=== PATIENT | female | born 1940 | race Caucasian/White ===

== ENCOUNTER 2018-10-12 20:47 | Observation (INO) | payer OTHER ==
[2018-10-12] MEDS ORDERED: ASPIRIN 325 MG TAB ONE (21:09)
[2018-10-12 21:10] LABS: Absolute Lymphocytes (CBC) 1.7 K/uL (0.7-4.9); Basophils % 0.4 % (0-1.3); Lymphocytes % 24.9 % (15.3-44.8); MPV 8.2 fL (7.6-11.3); RBC Red Blood Cell Count 4.56 M/uL (3.86-4.86)
[2018-10-12 21:13] LABS: Protime INR 1.04
--- NOTE | 2018-10-12 21:15 | RAD REPORT ---
EXAM DESCRIPTION: Alyce Single View10/12/2018 9:08 pm CLINICAL HISTORY: Chest pain COMPARISON: 2012 FINDINGS: The lungs appear clear of acute infiltrate. The heart is normal size IMPRESSION: No acute abnormalities displayed
[2018-10-12 21:32] LABS: ALT/SGPT 22 U/L (12-78); AST/SGOT 25 U/L (15-37); Albumin 3.8 g/dL (3.4-5.0); Alkaline Phosphatase 83 U/L (45-117); BUN Blood Urea Nitrogen 26 mg/dL (7-18); Bicarbonate 27 mmol/L (21-32); Bilirubin Direct < 0.1 mg/dL (0-0.2); Bilirubin Total 0.2 mg/dL (0.2-1.0); Glucose Level 106 mg/dL (74-106); Magnesium 2.1 mg/dL (1.8-2.4); NT PRO-BNP 97 pg/mL (<450); Potassium 3.5 mmol/L (3.5-5.1); Protein, Total 7.6 g/dL (6.4-8.2); Sodium Level 142 mmol/L (136-145); Troponin (Emerg Dept Use Only) < 0.02 ng/mL (0.0-0.045)
--- NOTE | 2018-10-12 23:26 | ER ---
Nurse's Notes [facility] Name: Marybel Quinn Age: 78 yrs Sex: Female : 1940 Arrival Date: 10/12/2018 Time: 20:50 Bed 6 Private MD: Ashley Wiley C Diagnosis: Chest pain, unspecified Presentation: 10/12 21:01 Presenting complaint: Patient states: Pt reports she started having chest pain about an ea hour ago, states "I was just walking to the kitchen to fix my and I some yogurt and the pain just started" reports pain gets worse with movement, denies pain radiating. Transition of care: patient was not received from another setting of care. Onset of symptoms was October 12, 2018. Risk Assessment: Do you want to hurt yourself or someone else? Patient reports no desire to harm self or others. Initial Sepsis Screen: Does the patient meet any 2 criteria? No. Patient's initial sepsis screen is negative. Does the patient have a suspected source of infection? No. Patient's initial sepsis screen is negative. Care prior to arrival: None. 21:01 Method Of Arrival: Ambulatory ea 21:01 Acuity: VANNESSA 3 ea Triage Assessment: 21:05 General: Appears uncomfortable, Behavior is appropriate for age. Pain: Complains of ea pain in anterior aspect of left upper chest and mid-sternal area. Cardiovascular: Patient's skin is warm and dry. Respiratory: Airway is patent Respiratory effort is even, unlabored, Respiratory pattern is regular, symmetrical. Historical: - Allergies: 21:11 No Known Allergies; ea - Home Meds: 21:11 levothyroxine 88 mcg tab 1 tab once daily [Active]; pravastatin 80 mg oral tab 1 tab ea once daily [Active]; amlodipine 5 mg tab 1 tab once daily [Active]; multivitamin with minerals oral tab daily [Active]; Fish Oil oral oral [Active]; - PMHx: 21:11 Hypertension; Hypothyroidism; ea - PSHx: 21:11 Hysterectomy; cataract surgery; ea - Immunization history:: Adult Immunizations up to date. - Social history:: Smoking status: Patient/guardian denies using tobacco. - Ebola Screening: : No symptoms or risks identified at this time. Screenin:04 Abuse screen: Denies threats or abuse. Nutritional screening: No deficits noted. ea Tuberculosis screening: No symptoms or risk factors identified. Fall Risk None identified. Assessment: 21:03 General: Appears uncomfortable, Behavior is calm, cooperative. Pain: Complains of pain ea in mid-sternal area Pain does not radiate. Neuro: Level of Consciousness is awake, alert, obeys commands, Oriented to person, place, time, situation. Cardiovascular: Patient's skin is warm and dry. Respiratory: Airway is patent Respiratory effort is even, unlabored, Respiratory pattern is regular, symmetrical, Breath sounds are clear bilaterally. Derm: Skin is pink, warm \\T\\ dry. Musculoskeletal: Circulation, motion, and sensation intact. 22:51 Reassessment: Patient and/or family updated on plan of care and expected duration. Pain ea level reassessed. Patient is alert, oriented x 3, equal unlabored respirations, skin warm/dry/pink. 23:55 Reassessment: Patient and/or family updated on plan of care and expected duration. Pain ea level reassessed. Patient is alert, oriented x 3, equal unlabored respirations, skin warm/dry/pink. 10/13 00:12 Reassessment: Report called to receiving nurse. ea 00:33 Reassessment: Patient and/or family updated on plan of care and expected duration. Pain ea level reassessed. Patient is alert, oriented x 3, equal unlabored respirations, skin warm/dry/pink. Pt admitted to room 229, pt taken via stretcher per tech, tolerating well. No s/s of pain or discomfort noted at this time. Vital Signs: 10/12 21:03 BP 133 / 76; Pulse 70; Resp 18; Temp 97.2; Pulse Ox 100% ; Weight 81.65 kg; Height 5 ea ft. 5 in. (165.10 cm); Pain 9/10; 21:41 BP 129 / 61; Pulse 70; Resp 14; Pulse Ox 97% on R/A; mt 22:30 BP 116 / 61; Pulse 76; Resp 18; Pulse Ox 97% on R/A; ea 23:30 BP 115 / 68; Pulse 74; Resp 18; Pulse Ox 98% on R/A; ea 10/13 00:00 BP 126 / 62; Pulse 72; Resp 18; Pulse Ox 97% on R/A; ea 00:31 BP 123 / 57; Pulse 70; Resp 18; Temp 98; Pulse Ox 98% ; ea 10/12 21:03 Body Mass Index 29.95 (81.65 kg, 165.10 cm) ea ED Course: 10/12 20:50 Patient arrived in ED. es 20:50 Ashley Wiley MD is Private Physician. es 20:53 Brian Lyons, RN is Primary Nurse. rv 20:53 Rudi Corcoran MD is Attending Physician. tw4 21:03 Triage completed. ea 21:04 Patient has correct armband on for positive identification. Bed in low position. Call ea light in reach. Side rails up X2. telemetry monitor on. Pulse ox on. NIBP on. 21:04 Arm band placed on right wrist. Patient placed in an exam room, on a stretcher, on ea pulse oximetry. 21:05 Patient maintains SpO2 saturation greater than 95% on room air. ea 21:08 XRAY Chest (1 view) In Process Unspecified. EDMS 22:54 Chest For Pe Angio In Process Unspecified. EDMS 23:24 Ashley Wiley MD is Hospitalizing Provider. [facility] 10/13 00:13 No provider procedures requiring assistance completed. Patient admitted, IV remains in ea place. Administered Medications: No medications were administered Outcome: 10/12 23:25 Decision to Hospitalize by Provider. [facility] 10/13 00:00 Instructed on the need for admit, Demonstrated understanding of instructions. ea 00:32 Admitted to Med/surg accompanied by tech, room 229, with chart, Report called to ea Receiving nurse on second floor 00:32 Condition: stable 00:34 Patient left the ED. ea Signatures: Dispatcher [employer] EDMerari Macias Moriah Dory Mcleod, JAENNE RN Rudi Corcoran MD MD tw4 Brian Lyons RN RN rv
--- NOTE | 2018-10-12 23:27 | EDPHYS ---
Physician Documentation [facility] Name: Marybel Quinn Age: 78 yrs Sex: Female : 1940 Arrival Date: 10/12/2018 Time: 20:50 Bed 6 Private MD: Ashley Wiley C ED Physician Rudi Corcoran HPI: 10/12 23:22 This 78 yrs old Female presents to ER via Ambulatory with complaints of Chest tw4 Pain. 23:22 The patient or guardian reports chest pain that is located primarily in the anterior tw4 chest wall. Onset: just prior to arrival. The pain does not radiate. Associated signs and symptoms: The patient has no apparent associated signs or symptoms. The chest pain is described as burning, dull, a heaviness. Duration: The patient or guardian reports a single episode, that is still ongoing. Modifying factors: The symptoms are alleviated by nothing. the symptoms are aggravated by nothing. The patient has not experienced similar symptoms in the past. Historical: - Allergies: 21:11 No Known Allergies; ea - Home Meds: 21:11 levothyroxine 88 mcg tab 1 tab once daily [Active]; pravastatin 80 mg oral tab 1 tab ea once daily [Active]; amlodipine 5 mg tab 1 tab once daily [Active]; multivitamin with minerals oral tab daily [Active]; Fish Oil oral oral [Active]; - PMHx: 21:11 Hypertension; Hypothyroidism; ea - PSHx: 21:11 Hysterectomy; cataract surgery; ea - Immunization history:: Adult Immunizations up to date. - Social history:: Smoking status: Patient/guardian denies using tobacco. - Ebola Screening: : No symptoms or risks identified at this time. ROS: 23:22 Constitutional: Negative for fever, chills, and weight loss, Eyes: Negative for injury, tw4 pain, redness, and discharge, Respiratory: Negative for shortness of breath, cough, wheezing, and pleuritic chest pain, Abdomen/GI: Negative for abdominal pain, nausea, vomiting, diarrhea, and constipation, Back: Negative for injury and pain. 23:22 MS/Extremity: Negative for injury and deformity, Skin: Negative for injury, rash, and discoloration. 23:22 Cardiovascular: Positive for chest pain, Negative for edema, orthopnea, palpitations. Exam: 23:22 Constitutional: This is a well developed, well nourished patient who is awake, alert, tw4 and in no acute distress. Head/Face: Normocephalic, atraumatic. Chest/axilla: Normal chest wall appearance and motion. Nontender with no deformity. No lesions are appreciated. Respiratory: Lungs have equal breath sounds bilaterally, clear to auscultation and percussion. No rales, rhonchi or wheezes noted. No increased work of breathing, no retractions or nasal flaring. Abdomen/GI: Soft, non-tender, with normal bowel sounds. No distension or tympany. No guarding or rebound. No evidence of tenderness throughout. Back: No spinal tenderness. No costovertebral tenderness. Full range of motion. MS/ Extremity: Pulses equal, no cyanosis. Neurovascular intact. Full, normal range of motion. Neuro: Awake and alert, GCS 15, oriented to person, place, time, and situation. Cranial nerves II-XII grossly intact. Motor strength 5/5 in all extremities. Sensory grossly intact. Cerebellar exam normal. Normal gait. Vital Signs: 21:03 BP 133 / 76; Pulse 70; Resp 18; Temp 97.2; Pulse Ox 100% ; Weight 81.65 kg; Height 5 ea ft. 5 in. (165.10 cm); Pain 9/10; 21:41 BP 129 / 61; Pulse 70; Resp 14; Pulse Ox 97% on R/A; mt 22:30 BP 116 / 61; Pulse 76; Resp 18; Pulse Ox 97% on R/A; ea 23:30 BP 115 / 68; Pulse 74; Resp 18; Pulse Ox 98% on R/A; ea 10/13 00:00 BP 126 / 62; Pulse 72; Resp 18; Pulse Ox 97% on R/A; ea 00:31 BP 123 / 57; Pulse 70; Resp 18; Temp 98; Pulse Ox 98% ; ea 10/12 21:03 Body Mass Index 29.95 (81.65 kg, 165.10 cm) ea MDM: 10/12 20:53 Patient medically screened. tw4 10/13 04:25 Differential diagnosis: acute myocardial infarction, acute pericarditis, coronary tw4 artery disease pulmonary embolus, stable angina, thoracic aortic disection, unstable angina. The patient was given aspirin in the Emergency Department. Data reviewed: vital signs, nurses notes. Data interpreted: Pulse oximetry: Interpretation: normal. Test interpretation: by ED physician or midlevel provider: ECG. Counseling: I had a detailed discussion with the patient and/or guardian regarding: the historical points, exam findings, and any diagnostic results supporting the discharge/admit diagnosis, lab results, the need for outpatient follow up. Physician consultation: A Inez ABRAHAM and will see patient in ED. Admission orders: after a detailed discussion of the patient's condition and case, the admit orders are written by me. 10/12 20:57 Order name: Basic Metabolic Panel; Complete Time: 23:20 tw4 10/12 23:21 Interpretation: Normal except: CL 108; GFR 50; BUN 26. tw10/12 20:57 Order name: CBC with Diff; Complete Time: 23:20 tw4 10/12 23:21 Interpretation: Within normal limits. tw10/12 20:57 Order name: LFT's; Complete Time: 23:20 tw4 10/12 23:21 Interpretation: Normal except: GLOB 3.8; A/G 1.0. 10/12 20:57 Order name: Magnesium; Complete Time: 23:20 tw4 10/12 23:21 Interpretation: Within normal limits: MG 2.1. 10/12 20:57 Order name: NT PRO-BNP; Complete Time: 23:20 tw4 10/12 23:21 Interpretation: Within normal limits: NT PRO-BNP 97. 10/12 20:57 Order name: PT-INR; Complete Time: 23:20 tw4 10/12 23:21 Interpretation: Within normal limits: PT 12.3. 10/12 20:57 Order name: Troponin (emerg Dept Use Only); Complete Time: 23:20 tw4 10/12 23:21 Interpretation: Within normal limits: TROPED < 0.02. tw4 10/12 23:46 Order name: Basic Metabolic Panel EDMS 10/12 23:47 Order name: Basic Metabolic Panel EDMS 10/12 23:48 Order name: CBC with Automated Diff EDMS 10/12 23:48 Order name: CBC with Automated Diff EDMS 10/12 23:48 Order name: Troponin I EDMS 10/12 23:48 Order name: Troponin I EDMS 10/12 23:48 Order name: Troponin I EDMS 10/12 20:57 Order name: XRAY Chest (1 view); Complete Time: 23:20 tw4 10/12 20:57 Order name: EKG; Complete Time: 20:59 tw4 10/12 20:57 Order name: Cardiac monitoring; Complete Time: 21:01 4 10/12 20:57 Order name: EKG - Nurse/Tech; Complete Time: 21:00 4 10/12 20:57 Order name: IV Saline Lock; Complete Time: 21:00 tw 10/12 20:57 Order name: Labs collected and sent; Complete Time: 21:00 tw4 10/12 20:57 Order name: O2 Per Protocol; Complete Time: 21:00 [facility] 10/12 20:57 Order name: O2 Sat Monitoring; Complete Time: 21:00 [facility] 10/12 22:01 Order name: Chest For Pe Angio [facility] 10/12 23:47 Order name: EKG Electrocardiogram [facility] 10/12 23:48 Order name: EKG Electrocardiogram [facility] 10/12 23:48 Order name: EKG Electrocardiogram [facility] 10/12 23:48 Order name: EKG Electrocardiogram [facility] 10/12 23:48 Order name: EKG Electrocardiogram [facility] Administered Medications: No medications were administered Disposition: 10/12/18 23:25 Hospitalization ordered by Ashley Wiley for Observation. Preliminary diagnosis is Chest pain, unspecified. - Bed requested for Telemetry/MedSurg (observation). - Status is Observation. ea - Condition is Stable. - Problem is new. - Symptoms have improved. UTI on Admission? No Signatures: Dispatcher [facility] Keisha Thompson RN RN mw Antunez, Elena RN Rudi Smalls ea, MD MD tw4 Corrections: (The following items were deleted from the chart) 10/12 22:01 21:51 Chest Angio+CT.RAD.BRZ ordered. [facility] 23:47 23:25 Hospitalization Ordered by A Inez ABRAHAM for Observation. Preliminary diagnosis is mw Chest pain, unspecified. Bed requested for Telemetry/MedSurg (observation). Status is Observation. Condition is Stable. Problem is new. Symptoms have improved. UTI on Admission? No. tw4 10/13 00:34 10/12 23:47 10/12/2018 23:25 Hospitalization Ordered by Ashley Wiley MD for Observation. ea Preliminary diagnosis is Chest pain, unspecified. Bed requested for Telemetry/MedSurg (observation). Status is Observation. Condition is Stable. Problem is new. Symptoms have improved. UTI on Admission? No. mw
[2018-10-12] MEDS ORDERED: ACETAMINOPHEN 500 MG TAB PO PRN (23:45)
[2018-10-13 00:53] VITALS: BMI 30.9
[2018-10-13 06:26] LABS: Absolute Lymphocytes (CBC) 1.5 K/uL (0.7-4.9); Basophils % 0.5 % (0-1.3); Hematocrit 38.9 % (36.0-45.0); Lymphocytes % 26.3 % (15.3-44.8); MPV 8.7 fL (7.6-11.3); RBC Red Blood Cell Count 4.44 M/uL (3.86-4.86)
[2018-10-13 06:32] LABS: BUN Blood Urea Nitrogen 23 mg/dL (7-18); Bicarbonate 29 mmol/L (21-32); Glucose Level 97 mg/dL (74-106); Potassium 3.7 mmol/L (3.5-5.1); Sodium Level 142 mmol/L (136-145); Troponin I < 0.02 ng/mL (0.0-0.045)
[2018-10-13 08:34] VITALS: BP 125/58; TEMP 97.6
[2018-10-13] MEDS ORDERED: ASPIRIN EC 81 MG TAB PO SCH (09:00)
[2018-10-13 09:48] VITALS: O2SAT 93
--- NOTE | 2018-10-13 16:57 | EKG ---
Test Date: 2018-10-12 Test Time: 20:56:59 Panel Fitter: RHONDA MEASUREMENT RESULTS: Intervals: Rate: 71 MO: 222 QRSD: 82 QT: 406 QTc: 441 [place]: P: 65 MO: 222 QRS: 1 T: 39 INTERPRETIVE STATEMENTS: Sinus rhythm with 1st degree AV block Otherwise normal ECG Compared to ECG 02/17/2013 12:01:52 First degree AV block now present Electronically Signed On 10-13-18 16:56:03 CDT by Conrado Velez
--- NOTE | 2018-10-13 21:24 | HP ---
Date of Admission: 10/12/2018 Chief Complaint: Chest pain. History Of Present Illness: This is a 78-year-old pleasant female patient who was doing fine in her usual state of health until yesterday afternoon. She was moving some heavy furniture in the house, a nd later on in the evening time, she started to have some chest pain and came into the emergency room . After she was evaluated in the ER, she was admitted to the hospital. Her pain has improved since her admission. Patient describes her chest pain is located in the left upper anterior chest in the i nfraclavicular region. There was no fall, no injury. Patient describes her pain as getting worse wi th movement of left arm, bending forward, or taking deep breaths. No shortness of breath. No nausea , vomiting. No rash. Allergies: NO KNOWN ALLERGIES. Medications: List was reviewed. Review of Systems: Cardiovascular: As mentioned above. Musculoskeletal: As mentioned above. All other systems were reviewed and negative. Past Medical History: Significant for hypertension, hyperlipidemia, hypothyroidism. Past Surgical History: Not pertinent. Family History: Brother with history of coronary artery disease, and grandmother had diabetes. Social History: Negative for smoking and alcohol use. Physical Examination: Vital Signs: Height 5 feet 5 inches, weight 185 pounds, temperature 97.6, pulse 67, respiratory rate 16, blood pressure 125/58, oxygen saturation 93%. General: Awake, alert, oriented, not in distress. HEENT: Head atraumatic, normocephalic. Conjunctivae nonerythematous. Sclerae white. Mouth, no thr ush or edema noted. Ears/Nose, no mass, lesion, discharge noted. Neck: Supple. No JVD, lymph nodes, bruit, thyromegaly noted. Lungs: Bilateral good equal air entry. Clear to auscultation. No rhonchi. No rales. Heart: Normal heart sounds, no murmur or gallop. Abdomen: Soft, bowel sounds normal. No guarding, rigidity, tenderness, mass, hepatosplenomegaly, di stention, or bruit noted. Extremities: No leg edema. No calf tenderness. Skin: No rash, ulcer, cellulitis. Lymphatics: No lymph node enlargement in neck, supraclavicular, infraclavicular region. Neuro: No focal neurological deficit. Chest: Patient left upper anterior chest along the 2nd and 3rd costochondral junction and lateral to that, she has some mild tenderness upon palpation. External Genitalia: Deferred. Rectal: Deferred. Laboratory Data And Imaging: Yesterday, white count 6.7, hemoglobin 13.3, platelets 188. Today, whi te count 5.8, hemoglobin 13, platelets 194. Yesterday, sodium 142, potassium 3.5, chloride 108, bica rb 27, BUN 26, creatinine 1.06, glucose 106. Liver function tests unremarkable. Today, sodium 142, potassium 3.7, chloride 109, bicarb 29, BUN 23, creatinine 0.78, glucose 97. Troponin less than 0.02 x3. Chest x-ray: No acute cardiopulmonary changes. CAT scan of the chest per PE protocol was negative for pulmonary embolism. EKG: No acute ST-T changes. Hospital Course: After the patient was evaluated in the ER, she was admitted to the hospital for obs ervation on telemetry. Her cardiac enzymes were negative. An VA was ruled out. She is feeling bett er today than yesterday, and we will go ahead and plan to discharge her to go home. Her chest pain a ppears to be atypical, musculoskeletal in nature. I have advised her to take Motrin 200 mg. Patient is to take 1 tablet by mouth 3 times a day with meal for 3-5 days. Patient was advised to come see me for followup visit a week after next. She reports that when she walks for her regular exercise so metimes, her blood pressure goes up and at that time she notices a little bit chest discomfort, so wi th that kind of history in mind, we will refer her to asbestos abatement technician on an outpatient basis for a stres s test. We will pursue that when she comes to see me at the office. She was advised to continue all her prior home medications. Final Diagnoses: 1.Chest pain. 2.Hypertension. 3.Hyperlipidemia. 4.Hypothyroidism. JEAN/MODL Voice ID: [id number]
--- NOTE | 2018-10-14 09:41 | RAD REPORT ---
EXAM DESCRIPTION: CT - Chest For Pe Angio - 10/12/2018 10:52 pm CLINICAL HISTORY: Shortness of breath. COMPARISON: None. TECHNIQUE: CT angiogram of the chest with IV contrast. 3-D MIP images were obtained in coronal and s agittal reconstructions. This exam was performed according to our departmental dose-optimization prog batool, which includes automated exposure control, adjustment of the mA and/or kV according to patient s ize and/or use of iterative reconstruction technique. FINDINGS: No filling defects are seen in the pulmonary trunk or the left and right main pulmonary ar wesley. There is limited evaluation of the segmental branches due to motion artifact. The thyroid gland is normal. No mediastinal or hilar adenopathy. The heart size is normal without per icardial effusion. The thoracic aorta is normal caliber. No consolidation, pleural effusion, or pneum othorax is identified. The visualized upper abdomen demonstrates no acute findings. No acute osseous findings are seen. IMPRESSION: No central pulmonary embolism. Electronically signed by: Marcello Clarke MD 10/12/2018 11:22 PM CDT Due to temporary technical issues with the PACS/Fluency reporting system, reports are being signed by the in house radiologist as a courtesy to ensure prompt reporting. The interpreting radiologist is f ully responsible for the content of the report.
== END 2018-10-13 11:05 | disposition home or self-care (01) ==
LOC: ER 20:47 → ERHOLD 23:43 → 2ND 10-13 00:22
PROVIDERS: ADMIT Internal Medicine; ATTEND Internal Medicine
DX: R07.9 Chest pain, unspecified (principal); I10 Essential (primary) hypertension; E78.5 Hyperlipidemia, unspecified; E03.9 Hypothyroidism, unspecified
CPT/HCPCS: 36415; 71045; 71275; 80048; 80076; 83735; 83880; 84484; 85025; 85610; 93005; 99285; G0378; Q9967

== ENCOUNTER 2023-05-21 09:47 | Day surgery (SDC) | payer OTHER ==
[2023-05-21 10:39] LABS: Absolute Eosinophils 0.2 K/uL (0-0.5); Absolute Lymphocytes (CBC) 0.8 K/uL (0.7-4.9); Absolute Monocytes 0.6 K/uL (0.1-1.3); Absolute Neutrophil 3.1 K/uL (1.8-8.0); Basophils % 0.7 % (0-1.3); Eosinophils % 3.9 % (0-4.4); Hematocrit 37.8 % (36.0-45.0); Hemoglobin 12.7 g/dL (12.0-15.0); Lymphocytes % 17.2 % (15.3-44.8); MCH 29.8 pg (27.0-35.0); MCHC 33.7 g/dL (32.0-36.0); MCV 88.6 fL (80-100); MPV 7.8 fL (7.6-11.3); Monocytes % 12.2 % (3.3-12.3); Nucleated Red Blood Cells % 0.1 % (0-0); Platelets 165 thou/uL (152-406); RBC Red Blood Cell Count 4.26 M/uL (3.86-4.86); Red Cell Distribution Width 13.9 % (12.1-15.2)
[2023-05-21 10:40] LABS: PTT, Activated Partial Thromb 32.2 SECONDS (24.3-36.9); Protime INR 1.09
[2023-05-21 10:52] LABS: ALT/SGPT 20 U/L (13-56); AST/SGOT 19 U/L (15-37); Albumin 3.3 g/dL (3.4-5.0); Albumin/Globulin Ratio 0.9 (1.1-1.8); Alkaline Phosphatase 86 U/L (45-117); Anion Gap 9.1 mEq/L (5.0-15.0); BUN Blood Urea Nitrogen 19 mg/dL (7-18); Bicarbonate 26 mEq/L (21-32); Bilirubin Total 0.3 mg/dL (0.2-1.0); Globulin 3.6 g/dL (2.3-3.5); Glomerular Filtration Rate 66 ml/min (=/>90); Glucose Level 94 mg/dL (74-106); Potassium 4.1 mEq/L (3.5-5.1); Protein, Total 6.9 g/dL (6.4-8.2); Sodium Level 142 mEq/L (136-145)
[2023-05-21 10:53] LABS: Bilirubin Direct < 0.1 mg/dL (0-0.2)
[2023-05-21 10:54] LABS: Bilirubin Indirect, Calculated ND mg/dL (0.2-0.8)
[2023-05-21 15:06] VITALS: BP 136/65; TEMP 98.6; O2SAT 96; BMI 31.6
[2023-05-21 15:29] LABS: Appearance CLEAR (CLEAR); Body Fluid Source CSF; Color of Supernate Not Xanthochromic (Not Xantho); Color of fluid Colorless (COLORLESS); Tube # #2
[2023-05-21 16:41] LABS: Body Fluid WBC 0 /mm^3
--- NOTE | 2023-05-21 19:08 | RAD REPORT ---
EXAM DESCRIPTION: RAD - Lumbar Puncture For Dx - 05/21/2023 1:01 pm CLINICAL HISTORY: LP Memory loss COMPARISON: No comparisons TECHNIQUE: The procedure, risks and alternatives to the procedure were discussed with the patient in detail. After answering all questions, both oral and written consent were obtained. Time-out procedu re was performed. A fur weigher image was performed demonstrating a 7-8 mm stone in the inferior right kidney. The patient was placed in an oblique prone position on the fluoroscopic table. The skin of the lower back was prepped and draped in the usual sterile fashion. After anesthetizing the skin and deeper sof t tissues with 1% lidocaine, a 22 gauge needle was advanced into the thecal sac at the L2-3 level. 14 cc of clear CSF was obtained. At the conclusion of the procedure the needle was withdrawn and a sterile bandage placed over the pun cture site. The patient tolerated the procedure well without immediate complications. Total fluoro time: 0.9 minutes Images obtained: 3 IMPRESSION: Successful fluoroscopic guided lumbar puncture. All obtained fluid was sent to the lab f or studies requested by the referring physician. Right renal stone.
[2023-05-21 23:19] LABS: CSF Glucose 60 mg/dL (40-70)
== END 2023-05-21 15:00 | disposition home or self-care (01) ==
LOC: RAD 09:47 → DS 15:00
PROVIDERS: ATTEND Psychiatry & Neurology Neurology with Special Qualifications in Child Neurology
PROC: 009U3ZX Drainage of Spinal Canal, Percutaneous Approach, Diagnostic (ICD-10-PCS; principal; 2023-05-21)
PROC: B01BZZZ Fluoroscopy of Spinal Cord (ICD-10-PCS; 2023-05-21)
DX: F03.90 Unspecified dementia, unspecified severity, without behavioral disturbance, psychotic disturbance, mood disturbance, and anxiety (principal); E03.9 Hypothyroidism, unspecified; I10 Essential (primary) hypertension
CPT/HCPCS: 36415; 77003; 80048; 80076; 82542; 82945; 84157; 85025; 85610; 85730; 89050